=== PATIENT | male | born 1970 | race Caucasian/White ===

== ENCOUNTER 2016-09-13 11:10 | Emergency (ER) | payer OTHER ==
--- NOTE | 2016-09-13 11:18 | ER Document Report ---
ED Medical Screen (RME) - General Stated Complaint: ANKLE INJURY Mode of Arrival: Ambulatory Information source: Patient Notes: c/o right ankle pain that started Saturday when he twisted it at work. Endorses swelling but this has improved since last night. Denies bruising or deformity. he has taken aspirin but no pain relief requesting work note I have greeted and performed a rapid initial assessment of this patient. A comprehensive ED assessment and evaluation of the patient, analysis of test results and completion of the medical decision making process will be conducted by additional ED providers. TRAVEL OUTSIDE OF THE [place] IN LAST 30 DAYS: No - Related Data Allergies/Adverse Reactions: No Known Allergies Allergy (Verified 09/13/16 11:15) Past Medical History Endocrine Medical History: Denies: Hx Diabetes Mellitus Type 1 Skin Medical History: Reports Hx MRSA Infectious Medical History: Denies: Hx MRSA Past Surgical History: Reports: Hx Oral Surgery - Reconstructive facial surgery - Immunizations Hx Diphtheria, Pertussis, Tetanus Vaccination: Yes Physical Exam - Vital signs Vitals: Temp Pulse Resp BP Pulse Ox 97.8 F 72 18 125/84 98 09/13/16 11:15 09/13/16 11:15 09/13/16 11:15 09/13/16 11:15 09/13/16 11:15 - Notes Notes: Ambulatory with limp, steady gait Course - Vital Signs Vital signs: Temp Pulse Resp BP Pulse Ox 97.8 F 72 18 125/84 98 09/13/16 11:15 09/13/16 11:15 09/13/16 11:15 09/13/16 11:15 09/13/16 11:15
--- NOTE | 2016-09-13 12:22 | ER Document Report ---
ED Extremity Problem, Lower - General Chief Complaint: Ankle Pain Stated Complaint: ANKLE INJURY Time seen by provider: 11:49 Mode of Arrival: Ambulatory TRAVEL OUTSIDE OF THE [place] IN LAST 30 DAYS: No - HPI Notes: Patient presents with right ankle injury that occurred at work with inversion 2 days ago when he stepped off an uneven area of concrete. He reports pain and swelling since that time. No knee pain no head injury no back pain. - Related Data Allergies/Adverse Reactions: No Known Allergies Allergy (Verified 09/13/16 11:15) Past Medical History - General Information source: Patient - Social History Smoking Status: Current Every Day Smoker Chew tobacco use (# tins/day): No Frequency of alcohol use: Occasional Family History: Reviewed & Not Pertinent Patient has suicidal ideation: No Patient has homicidal ideation: No Endocrine Medical History: Denies: Hx Diabetes Mellitus Type 1 Renal/ Medical History: Denies: Hx Peritoneal Dialysis Skin Medical History: Reports Hx MRSA Infectious Medical History: Denies: Hx MRSA Past Surgical History: Reports: Hx Nose Surgery - rhinoplasty, Hx Oral Surgery - Reconstructive facial surgery, Hx Orthopedic Surgery - Shoulder and hip - Immunizations Hx Diphtheria, Pertussis, Tetanus Vaccination: Yes Review of Systems - Review of Systems Constitutional: No symptoms reported EENT: No symptoms reported Cardiovascular: No symptoms reported Respiratory: No symptoms reported Gastrointestinal: No symptoms reported Genitourinary: No symptoms reported Male Genitourinary: No symptoms reported Musculoskeletal: See HPI, Joint pain, Joint swelling, Ankle swelling. denies: Deformity Skin: No symptoms reported Hematologic/Lymphatic: No symptoms reported Neurological/Psychological: No symptoms reported Physical Exam - Vital signs Vitals: Temp Pulse Resp BP Pulse Ox 97.8 F 72 18 125/84 98 09/13/16 11:15 09/13/16 11:15 09/13/16 11:15 09/13/16 11:15 09/13/16 11:15 Course - Vital Signs Vital signs: Temp Pulse Resp BP Pulse Ox 97.8 F 72 18 125/84 98 09/13/16 11:15 09/13/16 11:15 09/13/16 11:15 09/13/16 11:15 09/13/16 11:15 - Diagnostic Test Radiology reviewed: Image reviewed Procedures - Immobilization Right Ankle Time completed: 12:19 Discharge - Discharge Clinical Impression: Right ankle sprain Condition: Stable Disposition: HOME, SELF-CARE Instructions: Sprained Ankle ([facility]), Ice Packs ([facility]) Additional Instructions: Wear [place] wrap until able to ambulate without difficulty or pain. Please follow up with the Orthoped[facility] [address] [place] [id number] Prescriptions: Naproxen [Naprosyn 375 Mg Tablet] 375 mg PO BIDP PRN #30 tablet PRN Reason: Forms: Return to Work
[2016-09-13 12:50] VITALS: BP 132/89
== END 2016-09-13 12:43 | disposition home or self-care (01) ==
LOC: ER 11:10
DX: S93.421A Sprain of deltoid ligament of right ankle, initial encounter (principal); X50.0XXA Overexertion from strenuous movement or load, initial encounter; Y99.0 Civilian activity done for income or pay; F17.200 Nicotine dependence, unspecified, uncomplicated
CPT/HCPCS: 99283

== ENCOUNTER 2017-07-12 07:54 | Emergency (ER) | payer SELFPAY ==
[2017-07-12 08:01] VITALS: BP 132/94
--- NOTE | 2017-07-12 08:33 | RADIOLOGY REPORT (SQ) ---
EXAM DESCRIPTION: FINGER RIGHT COMPLETED DATE/TIME: 07/12/2017 8:15 am REASON FOR STUDY: right middle finger swelling, no trauma COMPARISON: None. NUMBER OF VIEWS: Three views. TECHNIQUE: AP, lateral, and oblique images acquired of the right third finger. LIMITATIONS: None. FINDINGS: MINERALIZATION: Overall normal bone density for age BONES: In the distal phalanx, right 3rd finger dorsal base, there is cortical erosion best shown on l ateral view. Oblique view shows irregular areas of demineralization at the base of the right 3rd fin dennise distal phalanx worrisome for underlying infection/osteomyelitis. These findings were discussed w elissa Bravo. No acute fracture. SOFT TISSUES: Dorsal distal 3rd finger soft tissue swelling. No foreign body. OTHER: No other significant finding. IMPRESSION: 3rd finger soft tissue swelling with underlying demineralization of the base right 3rd f bigg distal phalanx. Findings are worrisome for infection with cellulitis/ osteomyelitis. COMMENT: SITE OF TRAUMA/COMPLAINT MARKED/STAMP COMPLETED: Yes TECHNICAL DOCUMENTATION: JOB ID: [id number] [employer]- All Rights Reserved
--- NOTE | 2017-07-12 08:54 | ER Document Report ---
ED General - General Chief Complaint: Hand Pain Stated Complaint: FINGER PAIN SWELLING Time Seen by Provider: 07/12/17 08:05 Mode of Arrival: Ambulatory Information source: Patient Notes: 47-year-old male who states he works with his hands and he usually gets little cuts on that presents with complaints of swelling of the right hand. pt notes over the past 3 weeks the middle finger has been hurting, denies any fevers or chills. TRAVEL OUTSIDE OF THE [place] IN LAST 30 DAYS: No - HPI Onset: Other Onset/Duration: Persistent, Worse Quality of pain: Sharp Severity: Moderate Pain Level: 3 Associated symptoms: Other Exacerbated by: Denies Relieved by: Denies Similar symptoms previously: No Recently seen / treated by doctor: No - Related Data Allergies/Adverse Reactions: No Known Allergies Allergy (Verified 09/13/16 11:15) Past Medical History - Social History Smoking Status: Former Smoker Cigarette use (# per day): No Chew tobacco use (# tins/day): No Smoking Education Provided: No Frequency of alcohol use: Occasional Drug Abuse: None Family History: Reviewed & Not Pertinent Patient has suicidal ideation: No Patient has homicidal ideation: No Endocrine Medical History: Denies: Hx Diabetes Mellitus Type 1 Renal/ Medical History: Denies: Hx Peritoneal Dialysis Skin Medical History: Reports Hx MRSA Infectious Medical History: Denies: Hx MRSA Past Surgical History: Reports: Hx Nose Surgery - rhinoplasty, Hx Oral Surgery - Reconstructive facial surgery, Hx Orthopedic Surgery - Shoulder and hip - Immunizations Hx Diphtheria, Pertussis, Tetanus Vaccination: Yes Review of Systems - Review of Systems Notes: REVIEW OF SYSTEMS: CONSTITUTIONAL : Denies fever, chills, or sweats. Denies recent illness. EENT: Denies eye, ear, throat, or mouth pain or symptoms. Denies nasal or sinus congestion or discharge. Denies throat, tongue, or mouth swelling or difficulty swallowing. CARDIOVASCULAR: Denies chest pain. Denies palpitations or racing or irregular heart beat. Denies ankle edema. RESPIRATORY: Denies cough, cold, or chest congestion. Denies shortness of breath, difficulty breathing, or wheezing. GASTROINTESTINAL: Denies abdominal pain or distention. Denies nausea, vomiting , or diarrhea. Denies blood in vomitus, stools, or per rectum. Denies black, tarry stools. Denies constipation. GENITOURINARY: Denies difficulty urinating, painful urination, burning, frequency, blood in urine, or discharge. MUSCULOSKELETAL: Denies back or neck pain or stiffness. Denies joint pain or swelling. SKIN: Admits finger swelling HEMATOLOGIC : Denies easy bruising or bleeding. LYMPHATIC: Denies swollen, enlarged glands. NEUROLOGICAL: Denies confusion or altered mental status. Denies passing out or loss of consciousness. Denies dizziness or lightheadedness. Denies headache. Denies weakness or paralysis or loss of use of either side. Denies problems with gait or speech. Denies sensory loss, numbness, or tingling. Denies seizures. PSYCHIATRIC: Denies anxiety or stress. Denies depression, suicidal ideation, or homicidal ideation. ALL OTHER SYSTEMS REVIEWED AND NEGATIVE. Dictation was performed using [employer] voice recognition software PHYSICAL EXAMINATION: GENERAL: Well-appearing, well-nourished and in no acute distress. HEAD: Atraumatic, normocephalic. EYES: Pupils equal round and reactive to light, extraocular movements intact, sclera anicteric, conjunctiva are normal. ENT: Nares patent, oropharynx clear without exudates. Moist mucous membranes. NECK: Normal range of motion, supple without lymphadenopathy LUNGS: Breath sounds clear to auscultation bilaterally and equal. No wheezes rales or rhonchi. HEART: Regular rate and rhythm without murmurs ABDOMEN: Soft, nontender, nondistended abdomen. No guarding, no rebound. No masses appreciated. Musculoskeletal: Normal range of motion, no pitting or edema. No cyanosis. NEUROLOGICAL: Cranial nerves grossly intact. Normal speech, normal gait. Normal sensory, motor exams PSYCH: Normal mood, normal affect. SKIN: There is obvious swelling edema tenderness of the right hand middle digit Physical Exam - Vital signs Vitals: Temp Pulse Resp BP Pulse Ox 98.7 F 78 20 132/94 H 95 07/12/17 08:00 07/12/17 08:00 07/12/17 08:00 07/12/17 08:00 07/12/17 08:00 Course - Re-evaluation Re-evalutation: 07/12/17 08:54 ortho has been consulted for concerns for osteo-myelitis 07/12/17 09:09 Panchito Stallworth called back, explained concerns for osteomylitis 07/12/17 09:13 They wish for patient to go straight to their office for further evaluation care they do not wish to have any intervention done by myself here patient agrees with this plan will go directly to Dr. Porras's office After performing a Medical Screening Examination, I estimate there is LOW risk for OPEN FRACTURE, COMPARTMENT SYNDROME, TENDON RUPTURE, ACUTE NEUROVASCULAR INJURY, or RETAINED FOREIGN BODY, thus I consider the discharge disposition reasonable. Also, there is no evidence or peritonitis, sepsis, or toxicity. I have reevaluated this patient multiple times and no significant life threatening changes are noted. The patient and I have discussed the diagnosis and risks, and we agree with discharging home with close follow-up with the understanding that symptoms and presentations can change. We also discussed returning to the Emergency Department immediately if new or worsening symptoms occur. We have discussed the symptoms which are most concerning (e.g., changing or worsening pain, fever, numbness, weakness, cool or painful digits) that necessitate immediate return. - Vital Signs Vital signs: Temp Pulse Resp BP Pulse Ox 98.7 F 78 20 132/94 H 95 07/12/17 08:00 07/12/17 08:00 07/12/17 08:00 07/12/17 08:00 07/12/17 08:00 - Diagnostic Test Radiology reviewed: Image reviewed, Reports reviewed - report given to patient and to ortho Procedures - Additional Procedures digital nerve block Time performed: 08:50 - Using 5 cc of lidocaine 1% without epinephrine complete nerve block performed no complication Discharge - Discharge Clinical Impression: Paronychia Osteomyelitis Qualifiers: Osteomyelitis type: unspecified type Osteomyelitis location: hand Laterality: right Qualified Code(s): M86.9 - Osteomyelitis, unspecified Condition: Stable Disposition: HOME, SELF-CARE Instructions: [place] ([facility]) Additional Instructions: Please go directly to Dr. Porras's office and they are waiting for you right now Referrals: LITO PORRAS MD [ACTIVE STAFF] - 07/12/17
[2017-07-12] MEDS ORDERED: VANCOMYCIN HCL INJ 1000 MG VIAL IV ONE (09:08)
[2017-07-12] MEDS ORDERED: PIPERACILLIN/TAZOBACTAM 3.375 GM VIAL IV ONE (09:08)
== END 2017-07-12 09:57 | disposition home or self-care (01) ==
LOC: ER 07:54
DX: E10.69 Type 1 diabetes mellitus with other specified complication (principal); M86.9 Osteomyelitis, unspecified; L03.011 Cellulitis of right finger; Z87.891 Personal history of nicotine dependence; Z86.14 Personal history of Methicillin resistant Staphylococcus aureus infection
CPT/HCPCS: 99283

== ENCOUNTER → 2017-07-12 | Outpatient (CLI) | payer SELFPAY ==
--- NOTE | 2017-07-12 13:51 | RADIOLOGY REPORT (SQ) ---
EXAM DESCRIPTION: MRI RT UPPER EXTREMITY WITHOUT COMPLETED DATE/TIME: 07/12/2017 1:16 pm REASON FOR STUDY: M86.149 OTHER ACUTE OSTEOMYELITIS, UNSPECIFIED HAND M86.149 OTHER ACUTE OSTEOMYEL ITIS, UNSPECIFIED HAND COMPARISON: Right 3rd finger plain films 07/12/2017 TECHNIQUE: Multiplanar imaging of the right 3rd finger to include fat and fluid sensitive sequences. LIMITATIONS: None. FINDINGS: Abnormal marrow edema is present around the right 3rd finger distal phalanx. There is a s mall fluid collection within the marrow space, along the dorsal aspect of the distal phalanx base, be st shown on axial series 7, image 5, measuring about 4 mm in diameter. This correlates with the luce ncy on plain film. There is mild marrow edema in the distal aspect of the right 3rd finger middle phalanx near the DIP j oint. Small amount of joint space fluid is present in the right 3rd finger DIP joint. Collateral ligaments , flexor and extensor tendon attachments are intact. There is diffuse edema and soft tissue swelling over the dorsal aspect of the 3rd finger at the finge rnail bed from cellulitis. IMPRESSION: Osteomyelitis distal phalanx 3rd finger Small joint effusion left 3rd finger DIP joint with mild marrow edema in the adjacent middle phalanx, also likely infected TECHNICAL DOCUMENTATION: JOB ID: [id number] [employer]- All Rights Reserved
== END ==
LOC: RAD 12:58
PROVIDERS: ATTEND Orthopaedic Surgery
DX: M86.141 Other acute osteomyelitis, right hand (principal)

== ENCOUNTER 2017-07-13 06:29 | Observation (INO) | payer SELFPAY ==
[2017-07-13] MEDS ORDERED: RINGERS SOLUTION,LACTATED 1,000 ML IV PRN (07:54)
[2017-07-13] MEDS ORDERED: MORPHINE SULFATE 10 MG/ML INJ IV PRN (07:55)
[2017-07-13 07:59] LABS: APPEARANCE,URINE CLEAR; BILIRUBIN,URINE NEGATIVE (NEGATIVE); COLOR,URINE YELLOW; GLUCOSE, URINE NEGATIVE (NEGATIVE); KETONES,URINE NEGATIVE (NEGATIVE); LEUKOCYTE ESTERASE,URINE NEGATIVE (NEGATIVE); NITRITE,URINE NEGATIVE (NEGATIVE); PROTEIN,URINE NEGATIVE (NEGATIVE); URINE SPECIFIC GRAVITY 1.019
--- NOTE | 2017-07-13 08:07 | PDOC H&P ---
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 Patient often works with his hands and suffers many superficial abrasions and wounds. Patient reports that over the past 3 weeks his third digit of the right hand became painful and increasingly swollen. This is why he presented to the emergency department. Patient was then seen at [facility] surgery by Dr. Porras and Avelino JEFFERSON. It was determined the patient may be experiencing osteomyelitis versus flexor tendon synovitis of the third digit on the right hand. An MRI was ordered and completed on 07/12/2017 and he was admitted to the hospital at 6 AM on 07/13/2017. Past Medical History Cardiac Medical History: Reports: None Pulmonary Medical History: Reports: None EENT Medical History: Reports: Nose EENT History Note: History of rhinoplasty Neurological Medical History: Reports: None Endocrine Medical History: Reports: None Denies: Diabetes Mellitus Type 1 Malignancy Medical History: Reports: None GI Medical History: Reports: None Musculoskeltal Medical History: Reports: None Musculoskeletal History Note: History of orthopedic shoulder and hip surgery. Skin History Note: Reports history of MRSA. Psychiatric Medical History: Reports: None Traumatic Medical History: Reports: None Infectious Medical History: Denies: Methicillin-Resistant Staph Aureus Past Surgical History Past Surgical History: Reports: Orthopedic Surgery - Shoulder and hip Social History Smoking Status: Unknown if Ever Smoked Frequency of Alcohol Use: Occasional Hx Recreational Drug Use: No - Advance Directive Resuscitation Status: Full Code Family History Family History: Reviewed & Not Pertinent Parental Family History Reviewed: Yes - n/a Children Family History Reviewed: Yes Sibling(s) Family History Reviewed.: Yes Medication/Allergy Allergies/Adverse Reactions: No Known Allergies Allergy (Verified 09/13/16 11:15) Review of Systems Constitutional: ABSENT: chills, fever(s), headache(s), weight gain, weight loss Musculoskeletal: PRESENT: other - Patient reports pain and swelling of third digit on right hand. Patient reports he cannot completely flex or extend the distal phalange joint of the third digit. He does not remember a particular wound or injury that could have resulted in his current state. Physical Exam Vital Signs: Temp Pulse Resp BP Pulse Ox 36.5 C 66 20 113/71 93 07/13/17 07:49 07/13/17 07:49 07/13/17 07:49 07/13/17 07:49 07/13/17 07:49 Intake & Output 07/12/17 07/13/17 07/14/17 06:59 06:59 06:59 Weight 111.2 kg General appearance: PRESENT: mild distress, other - Patient reports third digit on the right hand is extremely painful and not prescribe pain medication has not needed in pain relief. Head exam: PRESENT: atraumatic, normocephalic Respiratory exam: PRESENT: unlabored Pulses: PRESENT: normal dorsalis pedis pul, +2 pedal pulses bilateral Vascular exam: PRESENT: normal capillary refill Extremities exam: PRESENT: tenderness Additional comments: Patient sitting on edge of hospital bed this morning with hand resting on bedside table. Patient's right hand is apparently swollen and tender to palpation along the third digit particularly the distal interphalangeal joint. Patient maintains range of motion flexion and extension of the metacarpophalangeal and proximal interphalangeal joint however has very limited range of motion of the distal phalange joint. Patient notes pain and tenderness to palpation. He still maintains full strength range of motion of the wrist in all directions including flexion extension pronation supination medial lateral rotation. He has brisk capillary refill and his sensorimotor functions are intact and distal neurovascular exam is intact. Musculoskeletal exam: PRESENT: ambulatory Additional comments: As stated above patient is ambulatory as main concern is his right upper extremity particularly right hand. As patient will likely undergo incision and drainage of the dorsal aspect of the third finger on the right hand, would recommend working with occupational therapy afterwards to possibly improve strength and range of motion of right hand as he is right-hand dominant. Neurological exam: PRESENT: alert, awake, oriented to person, oriented to place , oriented to time, oriented to situation, CN II-XII grossly intact. ABSENT: motor sensory deficit Psychiatric exam: PRESENT: appropriate affect, normal mood. ABSENT: homicidal ideation, suicidal ideation Skin exam: PRESENT: dry, intact, warm. ABSENT: cyanosis, rash Additional comments: As noted right hand is apparently swollen particularly the third digit. There is however no evidence of vesicles, erythema induration. Assessment & Plan - Diagnosis (1) Osteomyelitis Qualifiers: Osteomyelitis type: unspecified type Osteomyelitis location: hand Laterality: right Qualified Code(s): M86.9 - Osteomyelitis, unspecified Is this a current diagnosis for this admission?: Yes Plan: MRI imaging of the right hand reveals possible osteomyelitis involving both the distal and proximal phalange of the third digit of the right hand. Patient will likely undergo incision and drainage of the dorsal aspect of the third digit of the right hand in OR today. - Plan Summary Plan Summary: 47-year-old white male who presented to the emergency department with swollen and painful right hand and third finger of the right hand who was subsequently seen at [facility] for surgery and then readmitted to the hospital this morning. MRI imaging of his right hand reveals possible osteomyelitis of the distal interphalangeal joint involving both the proximal and distal phalange of the third finger. Patient will likely undergo incision and drainage of the dorsal aspect of the third digit of the right hand in OR today to address this possible infection.
--- NOTE | 2017-07-13 09:44 | RADIOLOGY REPORT (SQ) ---
EXAM DESCRIPTION: CHEST PA/LAT COMPLETED DATE/TIME: 07/13/2017 9:20 am REASON FOR STUDY: surgery COMPARISON: None. EXAM PARAMETERS: NUMBER OF VIEWS: two views TECHNIQUE: Digital Frontal and Lateral radiographic views of the chest acquired. RADIATION DOSE: NA LIMITATIONS: none FINDINGS: LUNGS AND PLEURA: No opacities, masses or pneumothorax. No pleural effusion. MEDIASTINUM AND HILAR STRUCTURES: No masses or contour abnormalities. HEART AND VASCULAR STRUCTURES: Heart normal size. No evidence for failure. BONES: No acute findings. HARDWARE: None in the chest. OTHER: No other significant finding. IMPRESSION: NO SIGNIFICANT RADIOGRAPHIC FINDING IN THE CHEST. TECHNICAL DOCUMENTATION: JOB ID: [id number] [employer]- All Rights Reserved
[2017-07-13 10:39] VITALS: BP 126/92
[2017-07-13 11:31] LABS: HEMATOCRIT 46.5 % (37.9-51.0); HEMOGLOBIN 15.8 g/dL (13.5-17.0); MEAN CORPUSCULAR HEMOGLOBIN 32.6 pg (27.0-33.4); MEAN CORPUSCULAR VOLUME 96 fl (80-97); PLATELET COUNT 188 10^3/uL (150-450); RED BLOOD COUNT 4.85 10^6/uL (4.35-5.55); RED CELL DISTRIBUTION WIDTH 13.3 % (11.5-14.0); WHITE BLOOD COUNT 8.6 10^3/uL (4.0-10.5)
--- NOTE | 2017-07-13 11:41 | Progress Note ---
Provider Note Provider Note: Prior to patient's surgery he was informed that he will need to remain n.p.o. after midnight of July 13, 2017. It was brought to the attention of the surgical and anesthesia staff the patient had been drinking soda after 12 midnight of July 13, 2017 as well as possibly eating potato chips. Additionally patient left his hospital room and was GANGA for roughly 20 minutes. When he returned to his room and was asked by nursing staff where he had been, he noted that he had been smoking outside of the hospital. He asked at a separate time if he could again leave to go smoke. Based on these actions that were corroborated by nursing and emergency department staff, it is of the opinion of the anesthesiologist that in the patient's current condition it would not be medically safe or appropriate to perform surgery. Therefore it was decided that his surgery was canceled for the date of July 13, 2017. When I entered the patient's room to inform him of these news he became very angry, stood and ripped out his IV line. Nursing staff was present in patient' s room and requested that patient sit and allow her to de-access the IV site appropriately and cover it with appropriate dressings as to prevent infection. Patient then stated "the next person to touch me, I will break their arm". Therefore patient's IV site was left alone and he then left the hospital AGAINST MEDICAL ADVICE.
--- NOTE | 2017-07-13 12:16 | EKG REPORT ---
SEVERITY:- NORMAL ECG - SINUS RHYTHM : Confirmed by: Ami Barnett MD 13-Jul-2017 12:15:06
== END 2017-07-13 11:30 | disposition left against medical advice (07) ==
LOC: 4W 06:29
PROVIDERS: ADMIT Orthopaedic Surgery; ATTEND Orthopaedic Surgery
DX: M86.9 Osteomyelitis, unspecified (principal); Z01.818 Encounter for other preprocedural examination; Z53.09 Procedure and treatment not carried out because of other contraindication; Z53.21 Procedure and treatment not carried out due to patient leaving prior to being seen by health care provider; Z86.14 Personal history of Methicillin resistant Staphylococcus aureus infection
CPT/HCPCS: 36415; 85027; 81001; 71020; 93005; 93010; G0378; J2270; J7120

== ENCOUNTER 2018-01-07 19:26 | Emergency (ER) | payer SELFPAY ==
[2018-01-07 19:34] VITALS: BP 130/87
[2018-01-07] MEDS ORDERED: TRAMADOL HCL 50 MG TABLET PO ONE (20:16)
--- NOTE | 2018-01-07 20:18 | ER Document Report ---
ED Medical Screen (RME) - General Chief Complaint: Toe Injury Stated Complaint: KNEE AND TOE INJURY Time Seen by Provider: 01/07/18 20:11 Notes: RAPID MEDICAL EVALUATION DISCLOSURE I have seen this patient as part of a Rapid Medical Evaluation and, if applicable, placed any initially appropriate orders. The patient will be seen and fully evaluated, including a full history and physical exam, by a provider ( in Main ED or Fast Track) when a room becomes available. 47-year-old male here status post fall earlier today. He reports that the lower was slippery and his feet gave out on him and he landed on his right knee with his foot underneath his buttocks. His right foot toenail became displaced. He had some bleeding however this was controlled with pressure. He has been unable to bear weight on the right lower extremity due to knee pain however at the knee pain has been ongoing for 2 weeks but worsened 2 days ago after working on his knees all day. Last tetanus 2 years ago. EXAM Mild patellar tendon TTP Minimal right third toe TTP with displaced toenail TRAVEL OUTSIDE OF THE [place] IN LAST 30 DAYS: No - Related Data Allergies/Adverse Reactions: No Known Allergies Allergy (Verified 01/07/18 19:28) Past Medical History Endocrine Medical History: Denies: Hx Diabetes Mellitus Type 1 Renal/ Medical History: Denies: Hx Peritoneal Dialysis Skin Medical History: Reports Hx MRSA Infectious Medical History: Denies: Hx MRSA Past Surgical History: Reports: Hx Nose Surgery - rhinoplasty, Hx Oral Surgery - Reconstructive facial surgery, Hx Orthopedic Surgery - Shoulder and hip - Immunizations Hx Diphtheria, Pertussis, Tetanus Vaccination: Yes History of Influenza Vaccine for 04/2017 - 09/2017 Season: No Physical Exam - Vital signs Vitals: Temp Pulse Resp BP Pulse Ox 98.7 F 94 20 130/87 H 96 01/07/18 19:32 01/07/18 19:32 01/07/18 19:32 01/07/18 19:32 01/07/18 19:32 Course - Vital Signs Vital signs: Temp Pulse Resp BP Pulse Ox 98.7 F 94 20 130/87 H 96 01/07/18 19:32 01/07/18 19:32 01/07/18 19:32 01/07/18 19:32 01/07/18 19:32 Doctor's Discharge - Discharge Referrals: LITO PORRAS MD [Primary Care Provider] - Follow up as needed
--- NOTE | 2018-01-07 20:38 | ER Document Report ---
ED Extremity Problem, Lower - General Chief Complaint: Toe Injury Stated Complaint: KNEE AND TOE INJURY Time Seen by Provider: 01/07/18 20:11 Information source: Patient Notes: 47-year-old male presents emergency department status post fall. Patient states that this occurred earlier today. Patient states that he was going down some slippery stairs when he fell landing on his right knee. Patient states that his toenail became avulsed. He had some bleeding associated with this but it was controlled with pressure. Patient states that he has had difficulty ambulating secondary to right knee pain today. He states that he has a history of knee pain. He states that it has been going on for the last 2 weeks but it has been progressively worsening. Patient denies any numbness, tingling, weakness. He states that his tetanus is up-to-date. TRAVEL OUTSIDE OF THE [place] IN LAST 30 DAYS: No - HPI Patient complains to provider of: Injury, Pain Location: 2nd Toe Occurred: This morning Where: Home Quality of pain: Throbbing Severity: Mild Context: Fell Recent injury: No Exacerbated by: Movement, Walking Relieved by: Nothing - Related Data Allergies/Adverse Reactions: No Known Allergies Allergy (Verified 01/07/18 19:28) Past Medical History - Social History Smoking Status: Current Every Day Smoker Chew tobacco use (# tins/day): Yes Frequency of alcohol use: None Drug Abuse: None Family History: Reviewed & Not Pertinent Patient has suicidal ideation: No Patient has homicidal ideation: No Endocrine Medical History: Denies: Hx Diabetes Mellitus Type 1 Renal/ Medical History: Denies: Hx Peritoneal Dialysis Skin Medical History: Reports Hx MRSA Infectious Medical History: Denies: Hx MRSA Past Surgical History: Reports: Hx Nose Surgery - rhinoplasty, Hx Oral Surgery - Reconstructive facial surgery, Hx Orthopedic Surgery - Shoulder and hip - Immunizations Hx Diphtheria, Pertussis, Tetanus Vaccination: Yes Review of Systems - Review of Systems Constitutional: No symptoms reported EENT: No symptoms reported Cardiovascular: No symptoms reported Respiratory: No symptoms reported Gastrointestinal: No symptoms reported Musculoskeletal: Joint pain Neurological/Psychological: No symptoms reported -: Yes All other systems reviewed and negative Physical Exam - Vital signs Vitals: Temp Pulse Resp BP Pulse Ox 98.7 F 94 20 130/87 H 96 01/07/18 19:32 01/07/18 19:32 01/07/18 19:32 01/07/18 19:32 01/07/18 19:32 Interpretation: Normal - Notes Notes: PHYSICAL EXAMINATION: GENERAL: Well-appearing, well-nourished and in no acute distress. HEAD: Atraumatic, normocephalic. EYES: Pupils equal round and reactive to light, extraocular movements intact, sclera anicteric, conjunctiva are normal. ENT: Nares patent, oropharynx clear without exudates. Moist mucous membranes. NECK: Normal range of motion, supple without lymphadenopathy LUNGS: Breath sounds clear to auscultation bilaterally and equal. No wheezes rales or rhonchi. HEART: Regular rate and rhythm without murmurs ABDOMEN: Soft, nontender, nondistended abdomen. No guarding, no rebound. No masses appreciated. Musculoskeletal: R knee tenderness to palpation to the medial and lateral aspect. Decreased ROM of R knee secondary to pain. 2+ DP/PT pulses. 2nd toe of R foot has nail avusion. NEUROLOGICAL: Cranial nerves grossly intact. Normal speech, normal gait. Normal sensory, motor exams PSYCH: Normal mood, normal affect. SKIN: Warm, Dry, normal turgor, no rashes or lesions noted. Course - Vital Signs Vital signs: Temp Pulse Resp BP Pulse Ox 98.7 F 94 20 130/87 H 96 01/07/18 19:32 01/07/18 19:32 01/07/18 19:32 01/07/18 19:32 01/07/18 19:32 Procedures - Nail Trephanation/Removal Right Foot 2nd digit Time completed: 22:15 Nail Trepanation/Removal Location: Nail removal Betadine prep applied: Yes Sterile Dressing Applied: No Finger Splint: No Notes: 01/07/18 22:38 Digital block done. 4cc of lidocaine injected into 2nd R toe. Betadine used to clean the area. Sterile field. 2nd R toe nail removed. Bleeding controlled. No complications. Discharge - Discharge Clinical Impression: Status post surgical removal of nail matrix of toe of right foot Knee sprain Qualifiers: Encounter type: initial encounter Involved ligament of knee: unspecified ligament Laterality: right Qualified Code(s): S83.91XA - Sprain of unspecified site of right knee, initial encounter Condition: Good Disposition: HOME, SELF-CARE Instructions: Knee Immobilizing Splint ([facility]), Sprained Knee ([facility]) Prescriptions: Cephalexin Monohydrate [Keflex 500 mg Capsule] 500 mg PO Q6H 5 Days #20 capsule Referrals: LITO PORRAS MD [Primary Care Provider] - Follow up as needed
--- NOTE | 2018-01-07 20:49 | RADIOLOGY REPORT (SQ) ---
EXAM DESCRIPTION: TOE RIGHT COMPLETED DATE/TIME: 01/07/2018 8:37 pm REASON FOR STUDY: s/p fall; pain at 3rd toe COMPARISON: None. NUMBER OF VIEWS: Two views. TECHNIQUE: AP and oblique images acquired of the right third toe. LIMITATIONS: None. FINDINGS: MINERALIZATION: Normal. BONES: No acute fracture or dislocation. No worrisome bone lesions. JOINTS: No effusions. SOFT TISSUES: No soft tissue swelling. No foreign body. OTHER: No other significant finding. IMPRESSION: NEGATIVE STUDY OF THE RIGHT TOE. NO RADIOGRAPHIC EVIDENCE OF ACUTE INJURY. COMMENT: SITE OF TRAUMA/COMPLAINT MARKED/STAMP COMPLETED: Yes TECHNICAL DOCUMENTATION: JOB ID: [id number] [employer]- All Rights Reserved Reading location - IP/workstation name: [email or web address]
--- NOTE | 2018-01-07 20:50 | RADIOLOGY REPORT (SQ) ---
EXAM DESCRIPTION: KNEE RIGHT 3 VIEWS COMPLETED DATE/TIME: 01/07/2018 8:37 pm REASON FOR STUDY: s/p fall; pain at anterior R knee COMPARISON: None. NUMBER OF VIEWS: Three views. TECHNIQUE: AP, lateral, and oblique radiographic images acquired of the right knee. LIMITATIONS: None. FINDINGS: MINERALIZATION: Normal. BONES: No acute fracture or dislocation. No worrisome bone lesions. JOINT: No effusion. SOFT TISSUES: No soft tissue swelling. No radio-opaque foreign body. OTHER: No other significant finding. IMPRESSION: NEGATIVE STUDY OF THE RIGHT KNEE. NO RADIOGRAPHIC EVIDENCE OF ACUTE INJURY. TECHNICAL DOCUMENTATION: JOB ID: [id number] [employer]- All Rights Reserved Reading location - IP/workstation name: [email or web address]
[2018-01-07] MEDS ORDERED: LIDOCAINE 1% INJ (10 MG/ML) 10 ML MDV INJ ONE (20:57)
[2018-01-07] MEDS ORDERED: LIDOCAINE 1% INJ-PF (10 MG/ML) 30 ML SDV ONE (21:48)
== END 2018-01-07 23:35 | disposition home or self-care (01) ==
LOC: ER 19:26
PROC: 0HBRXZZ Excision of Toe Nail, External Approach (ICD-10-PCS; principal; 2018-01-07)
DX: S91.204A Unspecified open wound of right lesser toe(s) with damage to nail, initial encounter (principal); S83.91XA Sprain of unspecified site of right knee, initial encounter; W10.9XXA Fall (on) (from) unspecified stairs and steps, initial encounter; Y92.009 Unspecified place in unspecified non-institutional (private) residence as the place of occurrence of the external cause; F17.210 Nicotine dependence, cigarettes, uncomplicated; Z86.14 Personal history of Methicillin resistant Staphylococcus aureus infection
CPT/HCPCS: 99283; 73562; 73660; 11750; L1830

== ENCOUNTER 2018-03-12 14:19 | Emergency (ER) | payer SELFPAY ==
[2018-03-12 14:31] VITALS: BP 149/89
[2018-03-12] MEDS ORDERED: NORMAL SALINE 1000 ML 1,000 ML IV PRN (14:45)
--- NOTE | 2018-03-12 14:46 | ER Document Report ---
ED Medical Screen (RME) - General Chief Complaint: Dizziness Stated Complaint: DIZZY,FEET AND LEG PAIN Time Seen by Provider: 03/12/18 14:42 Notes: 47 years old male presents today with 65 pounds weight gain within the last 6 months, general fatigue and tiredness, sweating profusely every day, postprandial drowsiness, lack of any sexual drive, general malaise and laziness. TRAVEL OUTSIDE OF THE [place] IN LAST 30 DAYS: No - Related Data Allergies/Adverse Reactions: No Known Allergies Allergy (Verified 01/07/18 19:28) Past Medical History - Social History Chew tobacco use (# tins/day): No Frequency of alcohol use: Occasional Drug Abuse: None Endocrine Medical History: Denies: Hx Diabetes Mellitus Type 1 Renal/ Medical History: Denies: Hx Peritoneal Dialysis Skin Medical History: Reports Hx MRSA Infectious Medical History: Denies: Hx MRSA Past Surgical History: Reports: Hx Nose Surgery - rhinoplasty, Hx Oral Surgery - Reconstructive facial surgery, Hx Orthopedic Surgery - Shoulder and hip - Immunizations Hx Diphtheria, Pertussis, Tetanus Vaccination: Yes History of Influenza Vaccine for 04/2017 - 09/2017 Season: No Physical Exam - Vital signs Vitals: Temp Pulse Resp BP Pulse Ox 98.3 F 73 16 149/89 H 95 03/12/18 14:28 03/12/18 14:28 03/12/18 14:28 03/12/18 14:28 03/12/18 14:28 Course - Vital Signs Vital signs: Temp Pulse Resp BP Pulse Ox 98.3 F 73 16 149/89 H 95 03/12/18 14:28 03/12/18 14:28 03/12/18 14:28 03/12/18 14:28 03/12/18 14:28 Doctor's Discharge - Discharge Referrals: LITO PORRAS MD [Primary Care Provider] - Follow up as needed
== END 2018-03-12 15:40 | disposition left against medical advice (07) ==
LOC: ER 14:19
DX: R42 Dizziness and giddiness (principal); M79.606 Pain in leg, unspecified; Z86.14 Personal history of Methicillin resistant Staphylococcus aureus infection
CPT/HCPCS: 36415; 99281

== ENCOUNTER 2020-05-16 19:19 | Emergency (ER) | payer SELFPAY ==
[2020-05-16 19:29] VITALS: BP 159/86
[2020-05-16] MEDS ORDERED: LIDOCAINE 1% INJ-PF (10 MG/ML) 30 ML SDV INJ ONE (19:30)
--- NOTE | 2020-05-16 19:32 | ER Document Report ---
ED Medical Screen (RME) - General Chief Complaint: Hand Pain Stated Complaint: FINGER PAIN Time Seen by Provider: 05/16/20 19:24 Primary Care Provider: LITO PORRAS MD [Primary Care Provider] - Follow up as needed TRAVEL OUTSIDE OF THE [place] IN LAST 30 DAYS: No - HPI Notes: 05/16/20 19:31 50-year-old male to the emergency department with complaints of left middle finger swelling and pain that is been getting worse for the past 2 months. He states that he has been getting a little bit of blood out of this area but no pus. He is not sure if he got something stuck in his hand. Denies any fevers or chills. He states that it is hurting so bad that it is making the ring finger hurt as well. Denies any other injuries that he knows of. Brief medical screening exam illustrates edema and tenderness to palpation to the ulnar side of the left middle finger. This area is indurated. Is not particularly fluctuant. Although there appears to be a central pustule. I performed a brief medical screening exam on the patient determined that the patient needs further evaluation and management by main side provider. I have placed initial orders to help expedite care. - Related Data Allergies/Adverse Reactions: No Known Allergies Allergy (Verified 05/16/20 19:30) Past Medical History Endocrine Medical History: Denies: Hx Diabetes Mellitus Type 1 Renal/ Medical History: Denies: Hx Peritoneal Dialysis Skin Medical History: Reports Hx MRSA Infectious Medical History: Denies: Hx MRSA Past Surgical History: Reports: Hx Nose Surgery - rhinoplasty, Hx Oral Surgery - Reconstructive facial surgery, Hx Orthopedic Surgery - Shoulder and hip - Immunizations Hx Diphtheria, Pertussis, Tetanus Vaccination: Yes Physical Exam - Vital signs Vitals: Temp Pulse Resp BP Pulse Ox 97.5 F 89 16 159/86 H 100 05/16/20 19:28 05/16/20 19:28 05/16/20 19:28 05/16/20 19:28 05/16/20 19:28 Course - Vital Signs Vital signs: Temp Pulse Resp BP Pulse Ox 97.5 F 89 16 159/86 H 100 05/16/20 19:28 05/16/20 19:28 05/16/20 19:28 05/16/20 19:28 05/16/20 19:28 Doctor's Discharge - Discharge Referrals: LITO PORRAS MD [Primary Care Provider] - Follow up as needed
--- NOTE | 2020-05-16 20:24 | RADIOLOGY REPORT (SQ) ---
EXAM DESCRIPTION: XR HAND 3 OR MORE VIEWS COMPLETED DATE/TME: 05/16/2020 19:29 CLINICAL HISTORY: 50 years, Male, left finger swelling, pain COMPARISON: None. TECHNIQUE: Three views of the left hand. FINDINGS: No suspicious bone or joint space abnormality. Possible mild swelling surrounding the distal phalanx of the third digit. On the lateral view, there is suggestion of a thin small radiopaque foreign body. Suggest clinical correlation.
== END 2020-05-16 21:16 | disposition left against medical advice (07) ==
LOC: ER 19:19
DX: M79.645 Pain in left finger(s) (principal); R60.0 Localized edema; Z53.20 Procedure and treatment not carried out because of patient's decision for unspecified reasons
CPT/HCPCS: 99281

== ENCOUNTER 2020-05-23 06:15 | Emergency (ER) | payer SELFPAY ==
[2020-05-23 06:26] VITALS: BP 147/97
== END 2020-05-23 07:54 | disposition left against medical advice (07) ==
LOC: ER 06:15
DX: Z53.21 Procedure and treatment not carried out due to patient leaving prior to being seen by health care provider (principal)